=== PATIENT | female | born 1955 | race Caucasian/White ===

== ENCOUNTER 2025-01-13 10:20 | Inpatient (IN) | payer OTHER ==
[2025-01-13] MEDS ORDERED: ALBUTEROL 2.5 MG/3 ML NEB SOL ONE ×2 (11:05→12:32)
[2025-01-13] MEDS ORDERED: IPRATROPIUM BROM 0.5MG/2.5ML ONE ×2 (11:05→12:32)
[2025-01-13 11:07] LABS: Absolute Lymphocytes (CBC) 2.0 K/uL (0.7-4.9); Hematocrit 43.1 % (36.0-45.0); Hemoglobin 14.5 g/dL (12.0-15.0); MCH 29.8 pg (27.0-35.0); MCHC 33.6 g/dL (32.0-36.0); MCV 88.9 fL (80-100); MPV 6.7 fL (7.6-11.3); Nucleated RBC Absolute Count 0.0 (0-0); Nucleated Red Blood Cells % 0.1 % (0-0); RBC Red Blood Cell Count 4.85 M/uL (3.86-4.86); White Blood Count 7.40 thou/uL (4.3-10.9)
[2025-01-13 11:29] LABS: ALT/SGPT 28.0 U/L (13-56); AST/SGOT 20.0 U/L (15-37); Albumin 3.6 g/dL (3.4-5.0); Albumin/Globulin Ratio 0.8 (1.1-1.8); Alkaline Phosphatase 101.0 U/L (45-117); Anion Gap 6.4 mEq/L (5.0-15.0); BUN Blood Urea Nitrogen 24.0 mg/dL (7-18); Globulin 4.5 g/dL (2.3-3.5); Glucose Level 80.0 mg/dL (74-106); NT PRO-BNP 290.0 pg/mL (<125); Potassium 4.4 mEq/L (3.5-5.1); Troponin High Sensitivity 15.8 pg/mL (<58.9)
[2025-01-13 11:32] LABS: Influenza A Ag Negative; Influenza B Ag Negative; SARS-CoV-2 Antigen Rapid Res Negative (Negative)
--- NOTE | 2025-01-13 11:46 | RAD REPORT ---
EXAMINATION: TWO VIEW CHEST XR CLINICAL INDICATION: Female, 69 years old. [facility] MAIN Chest pain;Cough Bed Name: 20 TECHNIQUE: 2 view radiographs of the chest were performed. COMPARISON: CT chest 10/09/2024. FINDINGS: The lungs are well inflated and clear. No pneumothorax or sizable effusion. The heart is normal in si ze. Mediastinal contours are unremarkable. IMPRESSION: No acute or significant abnormalities.
[2025-01-13] MEDS ORDERED: DIPHENHYDRAMINE 50 MG/ML VIAL ONE (12:05)
[2025-01-13] MEDS ORDERED: METHYLPREDNISOLONE 40 MG INJ ONE (12:09)
[2025-01-13] MEDS ORDERED: FAMOTIDINE 20 MG/2 ML VIAL IV ONE (12:10)
--- NOTE | 2025-01-13 12:42 | RAD REPORT ---
EXAMINATION: CTA CHEST PE CLINICAL INDICATION: Female, 69 years old. CHEST PAIN TECHNIQUE: This examination was performed according to an angiographic protocol with 3D post-processi ng. This involves 3D reconstructions, MIPs, volume rendered images and/or shaded surface rendering. One or more of the following dose reduction techniques were used: Automated exposure control, adjustm ent of the mA and/or kV according to patient size, and/or iterative reconstruction. Unless otherwise specified, incidental findings do not require dedicated imaging follow-up. [id number]. COMPARISON: 10/09/2024 FINDINGS: LOWER NECK: Visualized thyroid gland and soft tissues are normal. MEDIASTINUM AND LYMPH NODES: Unchanged enlarged AP window lymph node. THORACIC AORTA: No thoracic aortic aneurysm. PULMONARY ARTERIES: Caliber is within normal limits. No pulmonary emboli identified. HEART: Normal heart size. No coronary calcifications.No significant pericardial effusion. LUNGS AND AIRWAYS: Emphysema. Chronic scarring/atelectasis in the right middle lobe. Scattered 4 mm a nd smaller pulmonary nodules noted which are of doubtful significance and do not require follow-up. Posttreatment changes in the left upper lobe which are similar. Continued attention on follow-up.. PLEURA: No pleural effusions. No pneumothorax. OSSEOUS STRUCTURES AND CHEST WALL: No fracture or suspicious osseous lesions. UPPER ABDOMEN: No acute abnormalities. IMPRESSION: Negative for pulmonary embolism. No other acute process identified in the chest.
[2025-01-13] MEDS ORDERED: AZITHROMYCIN 500 MG INJ IVPB ONE (12:49)
[2025-01-13] MEDS ORDERED: NA CHLORIDE 0.9% 250 ML ONE (12:49)
--- NOTE | 2025-01-13 13:06 | ER ---
Nurse's Notes [facility] Name: Milli Smart Age: 69 yrs Sex: Female : 1955 Arrival Date: 01/13/2025 Time: 10:20 Bed 20 Private MD: Diagnosis: COPD/ Chronic obstructive pulmonary disease with (acute) exacerbation Presentation: 01/13 10:24 Chief complaint: Patient states: she has been having shortness of breath for 3 weeks. ap3 patient states she initially thought it was allergies but the breathing got harder. patient also reports chest pain that started last night. Coronavirus screen: At this time, unable to obtain information related to travel outside the [place] Ebola Screen: No symptoms or risks identified at this time. Initial Sepsis Screen: Does the patient meet any 2 criteria? HR > 90 bpm. Does the patient have a suspected source of infection? No. Patient's initial sepsis screen is negative. Risk Assessment: Do you want to hurt yourself or someone else? Patient reports no desire to harm self or others. Onset of symptoms is unknown. 10:24 Method Of Arrival: Ambulatory ap3 10:27 Acuity: EVELYN 2 ap3 Triage Assessment: 10:26 General: Appears uncomfortable, Behavior is cooperative, appropriate for age. Pain: ap3 Complains of pain in chest. Neuro: Level of Consciousness is awake, alert, obeys commands, Oriented to person, place, time, situation, Appropriate for age. Cardiovascular: Reports chest pain, Patient's skin is warm and dry. Respiratory: Reports shortness of breath on exertion Airway is patent Respiratory effort is labored, Respiratory pattern is regular, symmetrical, tachypnea Onset: The symptoms/episode began/occurred gradually. Historical: - Allergies: 10:26 PENICILLINS; ap3 10:26 Codeine; ap3 - PMHx: 10:29 Hypertensive disorder; ap3 10:29 lung cancer -2022; ap3 - Immunization history:: Adult Immunizations up to date. - Infectious Disease History:: Denies. - Social history:: Smoking status: Patient reports the use of cigarette tobacco products, smokes one-half pack cigarettes per day. Screenin:27 [facility] ED Fall Risk Assessment (Adult) History of falling in the last 3 months, ap3 including since admission No falls in past 3 months (0 pts) Confusion or Disorientation No (0 pts) Intoxicated or Sedated No (0 pts) Impaired Gait No (0 pts) Mobility Assist Device Used No (0 pt) Altered Elimination No (0 pt) Score/Fall Risk Level 0 - 2 = Low Risk Oriented to surroundings, Maintained a safe environment, Educated pt \T\ family on fall prevention, incl call for assistance when getting out of bed, Assessed \T\ reinforced patient's understanding of fall precautions, Hourly rounding (assess needs \T\ fall precautionary measures) done, Used ambulatory aids as needed (educated on \T\ assisted with). Abuse screen: Denies threats or abuse. Nutritional screening: No deficits noted. Tuberculosis screening: No symptoms or risk factors identified. Assessment: 11:14 General: Appears in no apparent distress. well groomed, well developed, well nourished, me1 Behavior is calm, cooperative, appropriate for age, Reports she has been having shortness of breath for 3 weeks. patient states she initially thought it was allergies but the breathing got harder. patient also reports chest pain that started last night. Pain: Denies pain. Neuro: Level of Consciousness is awake, alert, obeys commands, Oriented to person, place, time, situation, Appropriate for age. Cardiovascular: Patient's skin is warm and dry. Cardiovascular: Rhythm is regular. Respiratory: Respiratory: Airway is patent Respiratory effort is even, unlabored, Respiratory pattern is regular, symmetrical, Breath sounds are clear bilaterally. Breath sounds are diminished bilaterally. GI: No signs and/or symptoms were reported involving the gastrointestinal system. : EENT: No signs and/or symptoms were reported regarding the EENT system. Derm: Skin is intact, is healthy with good turgor, Skin is pink, warm \T\ dry. Musculoskeletal: No signs and/or symptoms reported regarding the musculoskeletal system. 12:10 General: Appears in no apparent distress. Behavior is calm, cooperative, appropriate rg5 for age. Respiratory: Reports shortness of breath at rest cough that is productive, Airway is patent Trachea midline Respiratory effort is even, unlabored, Respiratory pattern is regular, symmetrical, Breath sounds with wheezes. 12:10 GI: Abdomen is round. : No signs and/or symptoms were reported regarding the rg5 genitourinary system. EENT: No signs and/or symptoms were reported regarding the EENT system. Derm: Skin is intact, Skin is dry, Skin is normal. Musculoskeletal: Circulation, motion, and sensation intact. Range of motion: intact in all extremities. 13:00 Reassessment: No changes from previously documented assessment. Patient and/or family rg5 updated on plan of care and expected duration. Pain level reassessed. Patient is alert, oriented x 3, equal unlabored respirations, skin warm/dry/pink. 14:00 Reassessment: Patient and/or family updated on plan of care and expected duration. Pain rg5 level reassessed. Patient is alert, oriented x 3, equal unlabored respirations, skin warm/dry/pink. Patient states symptoms have improved. Vital Signs: 10:24 Pulse 122; Resp 24; Temp 97.8; Pulse Ox 94% on R/A; Weight 75.75 kg; Height 5 ft. 4 in. ap3 ; 10:27 BP 140 / 98; ap3 11:00 BP 139 / 86; Pulse 92; Resp 24; Pulse Ox 96% ; me1 12:00 BP 136 / 97; Pulse 94; Resp 16; Pulse Ox 95% ; me1 12:30 BP 148 / 95; Pulse 124; Resp 21; Pulse Ox 94% on R/A; rg5 13:00 BP 170 / 94; Pulse 131; Resp 21; Pulse Ox 93% on R/A; rg5 13:30 BP 140 / 76; Pulse 90; Resp 19; Pulse Ox 92% on R/A; rg5 14:20 BP 135 / 86; Pulse 71; Resp 19; Pulse Ox 95% ; rg5 15:30 BP 140 / 82; Pulse 69; Resp 19; Pulse Ox 96% on R/A; rg5 16:30 BP 136 / 96; Pulse 82; Resp 18; Pulse Ox 98% on R/A; Pain 0/10; rg5 17:46 BP 120 / 97; Pulse 83; Resp 19; Pulse Ox 98% on R/A; Pain 0/10; rg5 10:24 Body Mass Index 28.67 (75.75 kg, 162.56 cm) ap3 16:30 Pain Scale: Adult rg5 17:46 Pain Scale: Adult rg5 ED Course: 10:21 Patient arrived in ED. im 10:24 Obinna Nihcole FNP-C is PHCP. dr5 10:24 Lex Padgett MD is Attending Physician. dr5 10:27 Triage completed. ap3 10:28 Arm band placed on. ap3 10:48 Chest Pa And Lat (2 Views) XRAY In Process Unspecified. EDMS 11:01 Franci Camarena, STANLEY is Primary Nurse. me1 11:03 Inserted saline lock: 20 gauge in right antecubital area, using aseptic technique. ts3 Blood collected. Flushed with 10 mL NS. 11:03 Initial lab(s) drawn, by laborer [employer], sent to lab. ts3 11:03 EKG done, by diet tech. ts3 11:04 COVID-19 Ag + Flu A+B Ag Sent. ts3 11:14 Patient has correct armband on for positive identification. Bed in low position. Call me1 light in reach. Side rails up X2. Provided Education on: POC. Verbalized understanding.. Client placed on continuous cardiac and pulse oximetry monitoring. NIBP monitoring applied. traditional maori health practitioner on. Pulse ox on. NIBP on. 11:14 Troponin HS Sent. me1 11:14 NT PRO-BNP Sent. me1 11:14 CMP Sent. me1 11:14 COVID-19 Ag + Flu A+B Ag Sent. me1 11:14 No provider procedures requiring assistance completed. me1 12:24 CT Chest For PE Angio In Process Unspecified. EDMS 13:05 Dell Wooten is Hospitalizing Provider. dr5 14:24 Patient admitted, IV remains in place. intact, No redness/swelling at site. rg5 Administered Medications: 11:13 Drug: DuoNeb Nebulize (3:1) (2.5 mg - 0.5 mg) 6 ml Nebulizer once Route: Nebulizer; me1 12:04 Follow up: Response: No adverse reaction; Wheezing diminished me1 11:13 Drug: Dexamethasone IVP 10 mg IVP once; (not to exceed 40 mg) Route: IVP; Site: right me1 antecubital; 12:04 Follow up: Response: No adverse reaction me1 12:17 Drug: diphenhydrAMINE IVP 50 mg IVP once Route: IVP; Site: right antecubital; rg5 14:20 Follow up: Response: No adverse reaction rg5 12:20 Drug: MethylPrednisoLONE IVP 80 mg IVP once Route: IVP; Site: right antecubital; rg5 14:18 Follow up: Response: No adverse reaction rg5 12:20 Drug: Famotidine IVP 20 mg IVP once; dilute with 10 mL 0.9% NaCl; give over 2 minutes rg5 Route: IVP; Site: right antecubital; 14:18 Follow up: Response: No adverse reaction rg5 12:46 Drug: DuoNeb Nebulize (3:1) (2.5 mg - 0.5 mg) 3 ml Nebulizer once Route: Nebulizer; rg5 14:18 Follow up: Response: No adverse reaction rg5 12:54 Drug: AZITHromycin IVPB 500 mg IVPB once over 1 hrs; (mix in 250 mL NS) Route: IVPB; rg5 Infused Over: 1 hrs; Site: right antecubital; 14:00 Follow up: IV Status: Completed infusion; IV Intake: 250ml rg5 13:14 Drug: Metoprolol PO 50 mg PO once Route: PO; rg5 14:18 Follow up: Response: No adverse reaction; Blood pressure is lowered rg5 Medication: 11:14 VIS not applicable for this client. me1 Intake: 14:00 IV: 250ml; Total: 250ml. rg5 Outcome: 13:06 Decision to Hospitalize by Provider. dr5 14:24 Condition: stable rg5 14:24 Instructed on the need for admit, rg5 18:33 Patient left the ED. rg5 Signatures: Dispatcher [employer] EDTheresa Armas RN RN ap3 Ave Leone Michelle, RN RN me1 Sergio Gutiérrez RN RN rg5 Obinna Nichole, PAYABLE REPRESENTATIVE-C PAYABLE REPRESENTATIVE-[facility]5 Roxana Alejandra ts3 Corrections: (The following items were deleted from the chart) 11:14 10:24 Chief complaint: Patient states: she has been having shortness of breath for 3 me1 weeks. patient states she initially thought it was allergies but the breathing got harder. patient also reports chest pain that started last night. ap3 12:38 12:10 BP 148 / 95; Pulse 124bpm; Resp 21bpm; Pulse Ox 94% RA; rg5 rg5 17:46 16:45 BP 120 / 73; Pulse 83bpm; Resp 19bpm; Pulse Ox 98% RA; Pain 0/10, Adult; rg5 rg5
--- NOTE | 2025-01-13 13:06 | EDPHYS ---
Physician Documentation [facility] Name: Milli Smart Age: 69 yrs Sex: Female : 1955 Arrival Date: 01/13/2025 Time: 10:20 Bed 20 Private MD: ED Physician Lex Padgett HPI: 01/13 16:42 This 69 yrs old Female presents to ER via Ambulatory with complaints of dr5 Breathing Difficulty. 16:42 The patient has shortness of breath at rest. Onset: The symptoms/episode began/occurred dr5 3 week(s) ago. Duration: The symptoms are continuous, and are steadily getting worse. Patient is a 63-year-old female with history of hypertension, lung cancer in remission for 2 years, and atrial fibrillation coming in with shortness of breath and chest pain that is been going on for 3 weeks. Patient reports that she initially thought it was allergies, but the shortness of breath has been getting worse with ambulation and chest pain is worsening. Patient denies fever, abdominal pain, nausea, vomiting, diarrhea. Patient reports that she has breathing treatments and inhalers at home that have not been helping.. Historical: - Allergies: 10:26 PENICILLINS; ap3 10:26 Codeine; ap3 - PMHx: 10:29 Hypertensive disorder; ap3 10:29 lung cancer -2022; ap3 - Immunization history:: Adult Immunizations up to date. - Infectious Disease History:: Denies. - Social history:: Smoking status: Patient reports the use of cigarette tobacco products, smokes one-half pack cigarettes per day. ROS: 16:42 Constitutional: as per hpi dr5 Exam: 16:42 Constitutional: This is a well developed, well nourished patient who is awake, alert, dr5 and in no acute distress. Head/Face: Normocephalic, atraumatic. Eyes: Pupils equal round and reactive to light, extra-ocular motions intact. Lids and lashes normal. Conjunctiva and sclera are non-icteric and not injected. Cornea within normal limits. Periorbital areas with no swelling, redness, or edema. Neck: Trachea midline, no thyromegaly or masses palpated, and no cervical lymphadenopathy. Supple, full range of motion without nuchal rigidity, or vertebral point tenderness. No Meningismus. Chest/axilla: Normal chest wall appearance and motion. Nontender with no deformity. No lesions are appreciated. Cardiovascular: Irregular rate and rhythm with a normal S1 and S2. Normal PMI, no JVD. No pulse deficits. 16:42 Abdomen/GI: Soft, non-tender, non-distended Back: No spinal tenderness. No costovertebral tenderness. Full range of motion. Skin: Warm, dry with normal turgor. Normal color with no rashes, no lesions, and no evidence of cellulitis. MS/ Extremity: Pulses equal, no cyanosis. Neurovascular intact. Full, normal range of motion. Neuro: Awake and alert, GCS 15, oriented to person, place, time, and situation. Cranial nerves II-XII grossly intact. Motor strength 5/5 in all extremities. Sensory grossly intact. Cerebellar exam normal. Normal gait. 16:42 Respiratory: moderate respiratory distress is noted, Respirations: prolonged exhalation, that is moderate, pursed lip breathing, that is moderate, Breath sounds: wheezing: expiratory that is moderate, is heard diffusely, Respiratory rate: 30 upon arrival Vital Signs: 10:24 Pulse 122; Resp 24; Temp 97.8; Pulse Ox 94% on R/A; Weight 75.75 kg; Height 5 ft. 4 in. ap3 ; 10:27 BP 140 / 98; ap3 11:00 BP 139 / 86; Pulse 92; Resp 24; Pulse Ox 96% ; me1 12:00 BP 136 / 97; Pulse 94; Resp 16; Pulse Ox 95% ; me1 12:30 BP 148 / 95; Pulse 124; Resp 21; Pulse Ox 94% on R/A; rg5 13:00 BP 170 / 94; Pulse 131; Resp 21; Pulse Ox 93% on R/A; rg5 13:30 BP 140 / 76; Pulse 90; Resp 19; Pulse Ox 92% on R/A; rg5 14:20 BP 135 / 86; Pulse 71; Resp 19; Pulse Ox 95% ; rg5 15:30 BP 140 / 82; Pulse 69; Resp 19; Pulse Ox 96% on R/A; rg5 16:30 BP 136 / 96; Pulse 82; Resp 18; Pulse Ox 98% on R/A; Pain 0/10; rg5 17:46 BP 120 / 97; Pulse 83; Resp 19; Pulse Ox 98% on R/A; Pain 0/10; rg5 10:24 Body Mass Index 28.67 (75.75 kg, 162.56 cm) ap3 16:30 Pain Scale: Adult rg5 17:46 Pain Scale: Adult rg5 MDM: 10:24 Medical Screening Exam initiated dr5 16:42 Differential diagnosis: Anemia Bronchitis CHF exacerbation, Chronic Obstructive dr5 Pulmonary Disease Myocardial Infarction pneumonia, pulmonary edema, Pulmonary Embolism Unstable Angina. Antibiotic administration: Zithromax is given. Data interpreted: monitoring specialist: rate is 84 beats/min, rhythm is atrial fibrillation, Pulse oximetry: Interpretation: normal. Data reviewed: vital signs, nurses notes, lab test result(s), cardiac enzymes, troponin i, CBC, white blood cell count, hemoglobin, hematocrit, platelets, electrolytes, sodium, potassium, chloride, serum bicarbonate, BUN, creatinine, serum glucose, Flu: negative EKG, radiologic studies, CT scan, plain films. Consideration of Admission/Observation Patient was admitted/placed on observation. Management of patient was discussed with the following: Hospitalist: Dr. Wooten. I considered the following discharge prescriptions or medication management in the emergency department Medications were administered in the Emergency Department. See MAR. Historians other than the Patient: Spouse/Significant Other: . Care significantly affected by the following chronic conditions: Hypertension, Cancer, A-Fib. Care significantly affected by the following Social Determinants of Health: Poor access to healthcare and/or lack of insurance, Poor access to transportation, Problems related to employment. Scoring Tools HEART Score: History: ECG: Age: Risk Factors: Troponin: Total Score = 5. Counseling: I had a detailed discussion with the patient and/or guardian regarding the historical points, exam findings, and any diagnostic results supporting the discharge/admit diagnosis, the presence of at least one elevated blood pressure reading (>120/80) during this emergency department visit, lab results, radiology results, the need for further work-up and treatment in the hospital. Medication response: albuterol nebulizer treatment(s) partially relieved the patient's wheezing. Response to treatment: the patient's symptoms have markedly improved after treatment. Special discussion: I have referred the patient to see his PCP for further evaluation of high blood pressure. Discussed need for admission.. ED course: Patient is feeling better after 3 breathing treatments and steroids. No PE noted on CT scan. Will have patient admitted to hospital for COPD exacerbation. Patient is agreeable to plan and understands need for admission.. 01/13 10:31 Order name: CBC with Diff; Complete Time: 11:08 dr5 01/13 10:31 Order name: NT PRO-BNP; Complete Time: 11:55 dr5 01/13 10:31 Order name: Troponin HS; Complete Time: 11:55 dr5 01/13 10:31 Order name: CMP; Complete Time: 11:55 dr5 01/13 10:31 Order name: COVID-19 Ag + Flu A+B Ag; Complete Time: 11:55 dr5 01/13 14:22 Order name: Basic Metabolic Panel EDMS 08 14:22 Order name: Basic Metabolic Panel EDMS 01/13 14:22 Order name: Basic Metabolic Panel EDMS 01/13 14:22 Order name: Basic Metabolic Panel EDMS 01/13 14:22 Order name: Basic Metabolic Panel EDMS 01/13 14:22 Order name: Basic Metabolic Panel EDMS / 14:22 Order name: Magnesium EDMS 08/ 14:22 Order name: Magnesium EDMS 08/ 14:22 Order name: Magnesium EDMS 08/ 14:22 Order name: Magnesium EDMS 08/ 14:22 Order name: Magnesium EDMS 08/ 14:22 Order name: Magnesium EDMS 08/ 14:22 Order name: Phosphorus EDMS 08/ 14:22 Order name: Phosphorus EDMS 08/ 14:22 Order name: Phosphorus EDMS 08/ 14:22 Order name: Phosphorus EDMS 08/ 14:22 Order name: CBC with Automated Diff EDMS 08/ 14:22 Order name: CBC with Automated Diff EDMS 08/ 14:22 Order name: CBC with Automated Diff EDMS 08/ 14:22 Order name: CBC with Automated Diff EDMS 08/ 14:22 Order name: CBC with Automated Diff EDMS 08/ 14:22 Order name: CBC with Automated Diff EDMS 08/ 14:22 Order name: Phosphorus EDMS 08/ 14:22 Order name: Phosphorus EDMS 08/ 14:22 Order name: T4 Free EDMS 08/ 14:22 Order name: T4 Free EDMS 08/ 14:22 Order name: Thyroid Stimulating Hormone EDMS 08/ 14:22 Order name: Thyroid Stimulating Hormone EDMS 08/ 14:22 Order name: Troponin High Sensitivity EDMS 01/13 14:22 Order name: Troponin High Sensitivity [facility] 01/13 14:22 Order name: Troponin High Sensitivity [facility] 01/13 10:31 Order name: Chest Pa And Lat (2 Views) XRAY; Complete Time: 11:55 dr5 01/13 10:38 Order name: CT Chest For PE Angio; Complete Time: 12:43 dr5 08 14:22 Order name: CONS Physician Consult [facility] 01/13 10:31 Order name: Cardiac monitoring; Complete Time: 11:03 dr5 01/13 10:31 Order name: EKG - Nurse/Tech; Complete Time: 11:03 dr5 01/13 10:31 Order name: IV Saline Lock; Complete Time: 11:03 dr5 01/13 10:31 Order name: Labs collected and sent; Complete Time: 11:03 dr5 01/13 10:31 Order name: O2 Per Protocol; Complete Time: 11:03 dr5 01/13 10:31 Order name: O2 Sat Monitoring; Complete Time: 11:03 dr5 EC:53 Rate is 93 beats/min. Rhythm is regular. QRS [place] is Normal. AL interval is normal at dr5 136 msec. QRS interval is normal at 86 msec. QT interval is normal at 362 msec. Administered Medications: 11:13 Drug: DuoNeb Nebulize (3:1) (2.5 mg - 0.5 mg) 6 ml Nebulizer once Route: Nebulizer; me1 12:04 Follow up: Response: No adverse reaction; Wheezing diminished me1 11:13 Drug: Dexamethasone IVP 10 mg IVP once; (not to exceed 40 mg) Route: IVP; Site: right me1 antecubital; 12:04 Follow up: Response: No adverse reaction me1 12:17 Drug: diphenhydrAMINE IVP 50 mg IVP once Route: IVP; Site: right antecubital; rg5 14:20 Follow up: Response: No adverse reaction rg5 12:20 Drug: MethylPrednisoLONE IVP 80 mg IVP once Route: IVP; Site: right antecubital; rg5 14:18 Follow up: Response: No adverse reaction rg5 12:20 Drug: Famotidine IVP 20 mg IVP once; dilute with 10 mL 0.9% NaCl; give over 2 minutes rg5 Route: IVP; Site: right antecubital; 14:18 Follow up: Response: No adverse reaction rg5 12:46 Drug: DuoNeb Nebulize (3:1) (2.5 mg - 0.5 mg) 3 ml Nebulizer once Route: Nebulizer; rg5 14:18 Follow up: Response: No adverse reaction rg5 12:54 Drug: AZITHromycin IVPB 500 mg IVPB once over 1 hrs; (mix in 250 mL NS) Route: IVPB; rg5 Infused Over: 1 hrs; Site: right antecubital; 14:00 Follow up: IV Status: Completed infusion; IV Intake: 250ml rg5 13:14 Drug: Metoprolol PO 50 mg PO once Route: PO; rg5 14:18 Follow up: Response: No adverse reaction; Blood pressure is lowered rg5 Disposition: 17:08 Critical Care:. dr5 Disposition Summary: 01/13/25 13:06 Hospitalization Ordered Notes: Hospitalization Status: Inpatient Admission dr5 Provider: Dell Wooten Condition: Serious dr5 Problem: chronic dr5 Symptoms: have worsened dr5 Bed/Room Type: Standard [facility] Location: Telemetry/MedSurg (Inpatient)(01/13/25 17:33) Room Assignment: [facility](01/13/25 17:33) Diagnosis - COPD/ Chronic obstructive pulmonary disease with (acute) exacerbation dr5 Forms: - Medication Reconciliation Form dr5 - SBAR form dr5 - Leadership Thank You Letter dr5 Critical care time excluding procedures: 17:08 Critical care time: Bedside Care: 25 minutes, Consultation: 3 minutes, Family dr5 Intervention: 5 minutes. Total time: 33 minutes Signatures: Dispatcher [employer] EDKarla Cadet RN RN ss Theresa Valderrama RN RN ap3 Pam Whitney RN STANLEY kb3 Franci Camarena RN RN me1 Sergio Gutiérrez RN RN rg5 Obinna Nichole, ACCOUNTS PAYABLE LEAD-C ACCOUNTS PAYABLE LEAD-Cdr5 Corrections: (The following items were deleted from the chart) 10:32 10:32 CBC+H.LAB.BRZ ordered. EDMS EDMS 10:32 10:32 PROBNP+C.LAB.BRZ ordered. EDMS EDMS 10:32 10:32 Troponin High Sensitivity+C.LAB.BRZ ordered. EDMS EDMS 10:32 10:32 COMPREHENSIVE METABOLIC PANEL+C.LAB.BRZ ordered. EDMS EDMS 10:32 10:32 COVID-19 Ag + Flu A+B Ag+I.LAB.BRZ ordered. EDMS EDMS 10:32 10:32 Chest Pa And Lat (2 Views)+RAD.RAD.BRZ ordered. EDMS EDMS 15:42 13:06 Telemetry/MedSurg (observation) dr5 kb3 15:42 13:06 dr5 kb3 17:33 15:42 [facility] ER HOLD kb3 ss 17:33 15:42 ERHOLD- kb3 ss
[2025-01-13] MEDS ORDERED: METOPROLOL TAR 50 MG TAB ONE (13:08)
[2025-01-13] MEDS ORDERED: ACETAMINOPHEN 325 MG TABLET PO PRN (14:15)
--- NOTE | 2025-01-13 14:22 | P.HP ---
Certification for Inpatient Patient admitted to: Inpatient With expected LOS: >2 Midnights Practitioner: I am a practitioner with admitting privileges, knowledge of patient current condition, hospital course, and medical plan of care. Services: Services provided to patient in accordance with Admission requirements found in Title 42 Section 412.3 of the Code of Federal Regulations Patient History Date of Service: 01/13/25 Reason for admission: COPD exacerbation History of Present Illness: Milli Smart is a 69 year old female with Pmhx HTN/HLD, sinus tachycardia, Migraines, and lung cancer in remission for 2 years who presents to the ED with Progressive SOB for 3 weeks. She reports using her inhalers and breathing treatments with no relief. On evaluation, expiratory wheezing noted, normal air movement, on RA. Laboratory evaluation unremarkable. Chest xray reports "The lungs are well inflated and clear. No pneumothorax or sizable effusion. The heart is normal in size. Mediastinal contours are unremarkable. IMPRESSION: No acute or significant abnormalities." Chest PE protocol reports "Negative for pulmonary embolism. No other acute process identified in the chest." Milli will be admitted to hospitalist service for further evaluation and treatment of COPD exacerbation, Dr. Orlando consulted. Allergies codeine Allergy (Verified 01/13/25 19:23) swollen eyes and lips Penicillins Adverse Reaction (Severe, Verified 01/13/25 19:23) Shortness of breath Home Medications: Albuterol Inhaler [Ventolin Inhaler] 2 puff IH Q6H PRN 01/13/25 Atorvastatin Calcium [Lipitor] 20 mg PO BEDTIME 01/13/25 Budesonide/Glycopyr/Formoterol [Breztri Aerosphere Inhaler] 2 puff IN BID 01/13/25 Metoprolol Tartrate [Lopressor] 50 mg PO BID 01/13/25 Tramadol HCl [Ultram] 50 mg PO QIDP PRN 01/13/25 lisinopriL [Lisinopril] 20 mg PO DAILY 6PM 01/13/25 - Past Medical/Surgical History -: Lung cancer in remission for 2 years -: Hypertension -: Hyperlipidemia -: COPD -: AFIB -: Migraines Past Surgical History: Patient denies surgical history - Family History Family History: Reviewed- Non-Contributory - Social History Smoking Status: Current every day smoker Alcohol use: No CD- Drugs: No Review of Systems Other: per HPI Physical Examination - Physical Exam General: Alert, In no apparent distress, Oriented x3 HEENT: Atraumatic, Normocephalic Neck: Supple, 2+ carotid pulse no bruit Respiratory: Normal air movement, Expiratory wheezes Cardiovascular: Normal pulses, Regular rate/rhythm, Normal S1 S2 Capillary refill: <2 Seconds Gastrointestinal: Normal bowel sounds, Soft and benign Musculoskeletal: No clubbing Integumentary: No rashes Neurological: Normal speech, Normal tone - Studies Laboratory Data (last 24 hrs) 01/13/25 01/13/25 11:00 11:00 WBC 7.40 Hgb 14.5 Hct 43.1 Plt Count 231 Sodium 142 Potassium 4.4 BUN 24 H Creatinine 1.02 Glucose 80 Total Bilirubin 0.3 AST 20 ALT 28 Alkaline Phosphatase 101 Assessment and Plan - Plan Assessment and plan Acute hypoxic respiratory distress 2/2 COPD exacerbation Smoking abuse - Levaquin -solumedrol and DuoNebs -restart home inhalers -Consult Dr. Kapadia - Currently on room air -Continues to smoke daily, smoking cessation education provided HTN/HLD sinus tachycardia (Afib) Migraines lung cancer in remission for 2 years -Continue home medication as appropriate -Continuous telemetry DVT PPx Lovenox Full code LOS 2 days Discharge Plan: Home Plan to discharge in: 48 Hours - Advance Directives Does patient have a Living Will: Yes Does patient have a Durable POA for Healthcare: No Time Spent Managing Pts Care (In Minutes): 60
[2025-01-13] MEDS ORDERED: Levofloxacin 750mg IV 750 MG/150 ML BAG IV ONE (15:32)
[2025-01-13] MEDS: Levofloxacin 750mg IV 750 MG/150 ML BAG IV SCH (15:35)
[2025-01-13 16:09] VITALS: BMI 28.6
[2025-01-13] MEDS: METHYLPREDNISOLONE 40 MG INJ IV SCH ×2 (17:00→20:29)
[2025-01-13] MEDS: IPRATROPIUM BROM 0.5MG/2.5ML NEB SCH (18:14)
[2025-01-13] MEDS ORDERED: TRAMADOL HCL 50 MG TAB PO PRN (19:44)
[2025-01-13] MEDS ORDERED: ALBUTEROL INHALER 200 PUFF/6.7 GM IH PRN (19:44)
[2025-01-13] MEDS: METOPROLOL TAR 50 MG TAB PO SCH (20:29)
[2025-01-13] MEDS: BREZTRI AEROSPHERE IH SCH (20:29)
[2025-01-13] MEDS: ATORVASTATIN 20 MG TAB PO SCH (20:29)
[2025-01-13] MEDS: ALBUTEROL 2.5 MG/3 ML NEB SOL NEB SCH (20:30)
[2025-01-13 23:58] VITALS: O2SAT 94
[2025-01-14 06:42] LABS: Absolute Lymphocytes (CBC) 1.0 K/uL (0.7-4.9); Hematocrit 41.3 % (36.0-45.0); Hemoglobin 13.9 g/dL (12.0-15.0); MCH 29.5 pg (27.0-35.0); MCHC 33.6 g/dL (32.0-36.0); MCV 87.8 fL (80-100); MPV 6.8 fL (7.6-11.3); Nucleated RBC Absolute Count 0.0 (0-0); Nucleated Red Blood Cells % 0.0 % (0-0); RBC Red Blood Cell Count 4.71 M/uL (3.86-4.86); White Blood Count 10.10 thou/uL (4.3-10.9)
[2025-01-14 07:04] LABS: Anion Gap 8.2 mEq/L (5.0-15.0); BUN Blood Urea Nitrogen 23.0 mg/dL (7-18); Glucose Level 125.0 mg/dL (74-106); Magnesium 2.0 mg/dL (1.6-2.4); Potassium 4.2 mEq/L (3.5-5.1); Thyroid Stimulating Hormone 0.354 uIU/mL (0.358-3.740)
[2025-01-14 07:50] LABS: Blood Morphology Comment NOT SEEN (NOT SEEN); White Blood Cell Scan OK (OK)
[2025-01-14] MEDS: ENOXAPARIN 40 MG/0.4 ML SQ SCH (08:42)
--- NOTE | 2025-01-14 10:57 | P.DS ---
Admission Date: 01/13/25 Discharge Date: 01/14/25 Disposition: ROUTINE DISCHARGE Discharge Condition: GOOD Reason for Admission: COPD exacerbation Brief History of Present Illness: Diagnosis Acute hypoxic respiratory distress 2/2 COPD exacerbation HTN/HLD sinus tachycardia (Afib) Migraines lung cancer in remission for 2 years History of Smoking abuse HPI 01/13/2025 Milli Smart is a 69 year old female with Pmhx HTN/HLD, sinus tachycardia, Migraines, and lung cancer in remission for 2 years who presents to the ED with Progressive SOB for 3 weeks. She reports using her inhalers and breathing treatments with no relief. On evaluation, expiratory wheezing noted, normal air movement, on RA. Laboratory evaluation unremarkable. Chest xray reports "The lungs are well inflated and clear. No pneumothorax or sizable effusion. The heart is normal in size. Mediastinal contours are unremarkable. IMPRESSION: No acute or significant abnormalities." Chest PE protocol reports "Negative for pulmonary embolism. No other acute process identified in the chest." Milli will be admitted to hospitalist service for further evaluation and treatment of COPD exacerbation, Dr. Orlando consulted. Hospital Course: Milli was admitted and treated for COPD exacerbation. She reports lung cancer but in remission for 2 years treated with radiation therapy. She remained on room air this admission, she tolerated Levaquin, Dr. Orlando was consulted. Chest x-ray revealed COPD changes. Dr. Kapadia cleared her for discharge prednisone 20 mg and follow-up with him in his clinic in 2 weeks for PFTs and yearly LDCT scan Physical Exam General: Alert and Oriented x3 HEENT: Atraumatic, Normocephalic Neck: Supple, 2+ carotid pulse no bruit Respiratory: Clear BBS, on room air Cardiovascular: NSR, Normal S1 S2 Gastrointestinal: Soft and benign on palpation Musculoskeletal: No clubbing Integumentary: No rashes Neurological: Normal speech, Normal tone Vital Signs/Physical Exam: Temp Pulse Resp BP Pulse Ox 97.7 F 65 16 145/67 H 94 01/14/25 08:00 01/14/25 08:00 01/14/25 08:00 01/14/25 08:00 01/14/25 08:00 Laboratory Data at Discharge: WBC 10.10 thou/uL (4.3-10.9) 01/14/25 06:18 Hgb 13.9 g/dL (12.0-15.0) 01/14/25 06:18 Hct 41.3 % (36.0-45.0) 01/14/25 06:18 Plt Count 234 thou/uL (152-406) 01/14/25 06:18 Sodium 138 mEq/L (136-145) 01/14/25 06:18 Potassium 4.2 mEq/L (3.5-5.1) 01/14/25 06:18 BUN 23 mg/dL (7-18) H 01/14/25 06:18 Creatinine 1.16 mg/dL (0.55-1.02) H 01/14/25 06:18 Glucose 125 mg/dL (74-106) H 01/14/25 06:18 Phosphorus 3.4 mg/dL (2.5-4.9) 01/14/25 06:18 Magnesium 2.0 mg/dL (1.6-2.4) 01/14/25 06:18 Total Bilirubin 0.3 mg/dL (0.2-1.0) 01/13/25 11:00 AST 20 U/L (15-37) 01/13/25 11:00 ALT 28 U/L (13-56) 01/13/25 11:00 Alkaline Phosphatase 101 U/L (45-117) 01/13/25 11:00 Home Medications: Albuterol Inhaler [Ventolin Inhaler*] 2 puff IH Q6H PRN 01/13/25 Atorvastatin Calcium [Lipitor*] 20 mg PO BEDTIME 01/13/25 Budesonide/Glycopyr/Formoterol [Breztri Aerosphere Inhaler] 2 puff IN BID 01/13/25 Metoprolol Tartrate [Lopressor*] 50 mg PO BID 01/13/25 Tramadol HCl [Ultram] 50 mg PO QIDP PRN 01/13/25 lisinopriL [Lisinopril] 20 mg PO DAILY 6PM 01/13/25 predniSONE [Prednisone] 20 mg PO BID 5 Days #10 tab 01/14/25 New Medications: predniSONE [Prednisone] 20 mg PO BID 5 Days #10 tab Physician Discharge Instructions: 1. Please call and schedule a follow-up appointment with your PCP in 3-5 days - Please follow-up with your PCP for medication refills/adjustments 2. Please call and schedule a follow-up appointment with Dr. Orlando in one week 3. Continue regular diet 4. no activity restrictions 5. Return to the ED if symptoms worsen New medications Prednisone 20 mg twice daily x 5 days Diet: Regular Activity: Ad salma Followup: Herber Orlando MD [ACTIVE - CAN ADMIT] - 1-2 Weeks () OOT,OOT [Primary Care Provider] -
--- NOTE | 2025-01-14 12:16 | P.CNS ---
Date of Consult: 01/14/25 Chief Complaint: COPD exacerbation History of Present Illness: Patient is 69 years of age has been complaining of progressive dyspnea for the past 3 weeks and able to walk 3 feet uses Breztri and albuterol at home denies any cough congestion he has a prior history of lung cancer this feels slightly better Allergies codeine Allergy (Verified 01/13/25 19:23) swollen eyes and lips Penicillins Adverse Reaction (Severe, Verified 01/13/25 19:23) Shortness of breath Home Medications: Albuterol Inhaler [Ventolin Inhaler*] 2 puff IH Q6H PRN 01/13/25 Atorvastatin Calcium [Lipitor*] 20 mg PO BEDTIME 01/13/25 Budesonide/Glycopyr/Formoterol [Breztri Aerosphere Inhaler] 2 puff IN BID 01/13/25 Metoprolol Tartrate [Lopressor*] 50 mg PO BID 01/13/25 Tramadol HCl [Ultram] 50 mg PO QIDP PRN 01/13/25 lisinopriL [Lisinopril] 20 mg PO DAILY 6PM 01/13/25 predniSONE [Prednisone] 20 mg PO BID 5 Days #10 tab 01/14/25 - Past Medical/Surgical History -: Lung cancer in remission for 2 years -: Hypertension -: Hyperlipidemia -: COPD -: AFIB -: Migraines - Social History Smoking Status: Current every day smoker Alcohol use: No CD- Drugs: No Review of Systems 10-point ROS is otherwise unremarkable Physical Examination Temp Pulse Resp BP Pulse Ox 97.7 F 65 16 145/67 H 94 01/14/25 08:00 01/14/25 08:00 01/14/25 08:00 01/14/25 08:00 01/14/25 08:00 General: Alert, In no apparent distress, Oriented x3 Respiratory: Clear to auscultation bilaterally Cardiovascular: No edema, Normal pulses, Regular rate/rhythm - Problems (1) COPD exacerbation Current Visit: Yes Status: Acute Plan: Patient is 69 years of age admitted with COPD exacerbation she is compliant with Breztri and albuterol quit smoking 2 years ago when patient developed lung cancer and was treated with radiation therapy here locally currently his chest x-ray shows close COPD changes CT scan no significant findings labs reviewed unremarkable I suggest discharge patient on 20 twice daily of prednisone for 5 to 7 days continue with the Breztri albuterol follow-up with me in 2 weeks when outpatient pulmonary function testing and yearly LDCT scan
[2025-01-14 12:36] VITALS: BP 131/70; TEMP 98
== END 2025-01-14 12:48 | disposition home or self-care (01) | DRG 192 ==
LOC: ER 10:20 → ERHOLD 14:15 → 2ND 17:48
PROVIDERS: ADMIT Internal Medicine; ATTEND Internal Medicine
DX: J44.1 Chronic obstructive pulmonary disease with (acute) exacerbation (principal); I10 Essential (primary) hypertension; E78.5 Hyperlipidemia, unspecified; I48.91 Unspecified atrial fibrillation; R00.0 Tachycardia, unspecified; G43.909 Migraine, unspecified, not intractable, without status migrainosus; Z85.118 Personal history of other malignant neoplasm of bronchus and lung; Z92.3 Personal history of irradiation; Z79.51 Long term (current) use of inhaled steroids; Z79.52 Long term (current) use of systemic steroids; Z88.5 Allergy status to narcotic agent; Z88.0 Allergy status to penicillin; Z87.891 Personal history of nicotine dependence; R06.03 Acute respiratory distress
CPT/HCPCS: 36415; 71046; 71275; 80048; 80053; 83735; 83880; 84100; 84439; 84443; 84484; 85025; 87428; 94640; 96365; 96375; 99285; J0456; J1100; J1200; J1650; J2919; J7050; J7613; J7644; Q9967